=== PATIENT | female | born 1970 | race Caucasian/White ===

== ENCOUNTER 2022-10-17 08:41 | Emergency (ER) | payer BC ==
[2022-10-17] MEDS ORDERED: Sodium Chloride 0.9% 10 ML Syringe FLUSH PRN (08:51)
[2022-10-17] MEDS ORDERED: Aspirin 81 MG Tab.Chew PO ONE (09:04)
[2022-10-17 09:07] LABS: BASOPHILS PERCENT AUTO 0.3 % (0.2-1.2); EOSINOPHILS ABSOLUTE AUTO 0.1 x10^3/uL (0.0-0.5); EOSINOPHILS PERCENT AUTO 1.8 % (0.0-4.0); HEMATOCRIT 41.8 % (33.0-47.0); HEMOGLOBIN 14.5 g/dL (12.0-16.0); IMMATURE GRAN ABSOLUTE AUTO 0.01 x10^3/uL (0.00-0.07); LYMPHOCYTES ABSOLUTE AUTO 2.2 x10^3/uL (1.0-4.8); LYMPHOCYTES PERCENT AUTO 27.9 % (25.0-50.0); MEAN CORPUSCULAR HEMOGLOBIN 30.4 pg (26.0-32.0); MEAN CORPUSCULAR HGB CONC 34.7 g/dL (32.0-36.0); MEAN CORPUSCULAR VOLUME 87.6 fL (78.0-93.0); MONOCYTES ABSOLUTE AUTO 0.6 x10^3/uL (0.0-0.8); MONOCYTES PERCENT AUTO 7.4 % (2.0-11.0); NEUTROPHILS ABSOLUTE AUTO 4.9 x10^3/uL (1.8-7.7); NEUTROPHILS PERCENT AUTO 62.5 % (50.0-80.0); PLATELET COUNT,PLT 247 x10^3/uL (130-400); RED BLOOD CELL COUNT 4.77 x10^6/uL (4.00-5.50); WHITE BLOOD CELL COUNT,WBC 7.8 x10^3/uL (4.0-10.0)
[2022-10-17 09:23] LABS: INR 0.9 (2.0-3.5); PROTHROMBIN TIME 10.1 SEC (9.5-12.2)
[2022-10-17] MEDS ORDERED: Nitroglycerin 0.4 MG Tab.SL ONE (09:29)
[2022-10-17 09:35] LABS: A/G RATIO 1.12; ALANINE AMINOTRANSFERASE,ALT 27 U/L (14-59); ALBUMIN 3.7 g/dL (3.4-5.0); ALKALINE PHOSPHATASE 55 U/L (46-116); ASPARTATE AMNIOTRANSFERASE,AST 19 U/L (15-37); BILIRUBIN TOTAL 0.5 mg/dL (0.2-1.0); BLOOD UREA NITROGEN,BUN 9 mg/dL (7-18); CALCIUM 9.3 mg/dL (8.5-10.1); CARBON DIOXIDE,CO2 26 mmol/L (21-32); CHLORIDE,CL 104 mmol/L (98-107); CREATININE 0.9 mg/dL (0.55-1.02); GLUCOSE RANDOM 92 mg/dL (70-99); MAGNESIUM 1.9 mg/dL (1.8-2.4); PHOSPHORUS 2.8 mg/dL (2.6-4.7); POTASSIUM,K 4.4 mmol/L (3.5-5.1); PRO B-TYPE NATRIUR PEPT,BNPPRO 74 pg/mL (<=125); SODIUM,NA 138 mmol/L (136-145)
[2022-10-17 09:38] LABS: ANION GAP 12.4 mmol/L (5-15); C-REACTIVE PROTEIN < 0.2 mg/dL (<=0.9); ESTIMATED GFR 78 mL/min (>=60)
[2022-10-17] MEDS ORDERED: Nitroglycerin 0.4 MG Tab.SL SL ONE (10:09)
== END 2022-10-17 12:18 | disposition home or self-care (01) ==
LOC: VM.ED 08:41 → SUPCPDRO 08:41 → VM.ED 12:18
DX: R07.89 Other chest pain (principal); M25.512 Pain in left shoulder; Z88.1 Allergy status to other antibiotic agents; Z88.2 Allergy status to sulfonamides; Z88.5 Allergy status to narcotic agent
CPT/HCPCS: 36415; 71045; 80053; 83735; 83880; 84100; 84484; 85025; 85610; 85730; 86140; 93005; 99285; A9270-GY

== ENCOUNTER 2023-03-21 11:25 | Day surgery (SDC) | payer BC ==
[~2023-03-21 11:25] MED LIST: Lactated Ringers 1,000 ML IV SCH
[2023-03-21] MEDS ORDERED: Propofol 200 MG/20 ML SDV ONE (12:34)
[2023-03-21] MEDS ORDERED: fentaNYL 100 MCG/2 ML SDV ONE (12:34)
[2023-03-21] MEDS ORDERED: Midazolam 1 MG/ML 2 ML SDV ONE (12:34)
== END 2023-03-21 14:39 | disposition home or self-care (01) ==
LOC: VM.SDS 11:25
PROVIDERS: ATTEND Family Medicine
DX: R10.31 Right lower quadrant pain (principal); K64.4 Residual hemorrhoidal skin tags; K64.5 Perianal venous thrombosis; F43.21 Adjustment disorder with depressed mood; G43.009 Migraine without aura, not intractable, without status migrainosus; F41.9 Anxiety disorder, unspecified; Z80.0 Family history of malignant neoplasm of digestive organs; Z79.899 Other long term (current) drug therapy; Z88.2 Allergy status to sulfonamides; Z88.5 Allergy status to narcotic agent; Z88.1 Allergy status to other antibiotic agents
CPT/HCPCS: 45380; J2250; J2704; J3010; J7120; 00811

== ENCOUNTER 2024-08-09 14:37 | Emergency (ER) | payer BC ==
[2024-08-09] MEDS: Ketorolac 30 MG/ML SDV IM ONE (15:16)
[2024-08-09] MEDS ORDERED: Ketorolac 30 MG/ML SDV ONE (15:16)
[2024-08-09] MEDS ORDERED: Promethazine 25 MG/ML SDV ONE (15:16)
[2024-08-09] MEDS: Promethazine 25 MG/ML SDV IM ONE (15:16)
== END 2024-08-09 16:15 | disposition home or self-care (01) ==
LOC: VM.ED 14:37
DX: G43.501 Persistent migraine aura without cerebral infarction, not intractable, with status migrainosus (principal); Z90.49 Acquired absence of other specified parts of digestive tract; Z90.710 Acquired absence of both cervix and uterus; Z88.1 Allergy status to other antibiotic agents; Z88.2 Allergy status to sulfonamides; Z88.8 Allergy status to other drugs, medicaments and biological substances; Z79.899 Other long term (current) drug therapy
CPT/HCPCS: 96372; 99283; J1885; J2550